=== PATIENT | female | born 1990 | race Caucasian/White ===

== ENCOUNTER 2023-01-16 09:39 | Outpatient (OUT) | payer OTHER, SELFPAY ==
--- NOTE | 2023-01-16 09:01 | US_ITS ---
The [address] [address] Patient Name: FREDERICK RUIZ MRN: [id number] date: 1990 Sex: F Assigned Patient Location: Current Patient Location: US Accession/Order Number: [id number] Exam Date: 01/16/2023 09:02 Report Date: 01/16/2023 09:45 At the request of: JESSIE CONTEH Procedure: US pelvis transvaginal EXAM: US pelvis transvaginal HISTORY: . UNABLE TO SEE IUD STRINGS . COMPARISON: None. TECHNIQUE: Transvaginal scanning was performed FINDINGS: Scanning of the pelvis demonstrates the uterus to measure 11 x 5 x 7.1 cm. Endometrial complex measures 4 mm. Within the endometrial cavity are linear hyperechoic structures with shadowing consistent with an IUD which appears in good position. Left ovary measures 3.5 x 2.7 x 2.3 cm. Color-flow is noted. Resistive indexes 0.6. Follicles are noted. Right ovary measures 4 x 2.2 x 2 cm. Color-flow is noted. Resistive indexes 0.6. Follicles are noted. No masses are noted. No free fluid is noted in the cul-de-sac. US/US pelvis transvaginal IMPRESSION: 1. Normal-appearing uterus and endometrial complex. IUD appears in good position. 2. Normal-appearing ovaries. Electronically authenticated by: BARI SILVESTRE Date: 01/16/2023 09:45
== END 2023-01-16 09:40 | disposition home or self-care (01) ==
LOC: US 09:40
PROVIDERS: Visit Provider Obstetrics & Gynecology
DX: Z97.5 Presence of (intrauterine) contraceptive device (principal)
CPT/HCPCS: 76830

== ENCOUNTER 2024-08-21 06:34 | Outpatient (OUT) | payer OTHER, SELFPAY ==
[2024-08-21 07:58] LABS: Alanine Aminotransferase 25 U/L (14-59); Triglycerides 56 mg/dL (<=150)
== END 2024-08-21 06:35 | disposition home or self-care (01) ==
LOC: LAB 06:34
PROVIDERS: PCP Nurse Practitioner Family
DX: L70.0 Acne vulgaris (principal)
CPT/HCPCS: 36415; 84460; 84478

== ENCOUNTER 2024-11-24 07:04 | Outpatient (OUT) | payer OTHER, SELFPAY ==
--- OUTSIDE RECORDS SUMMARY | 2023-12-31 07:00 | XMS_ITS ---
Author Organization [facility] [place] Address [address] [place] [address] Care Team Providers Care Enterprise Resource Planner Name Role Phone Sonali Langford Primary Care Provider [phone] Allergies No Known Allergies REASON FOR VISIT QUALITY ASSURANCE LEAD- Establish care, poison huan Medications Medication SIG (Take, Route, Frequency, Duration) Notes Start Date End Date Status Clindamycin Phosphate 1 % 1 application External once daily for 30 days Active Winlevi 1 % 1 application Mechanical Field Engineer al Twice a day for 30 days Active Social History Tobacco Use: Social History Observation Description Date Details (start date - stop date) Never Smoker NA - NA Tobacco Control (Standard) Question Answer Notes Tobacco use: Nonsmoker AUDIT-C (Standard) Question Answer Notes Did you have a drink contain ing alcohol in the past year? Yes How often did you have six o r more drinks on one occasion in the past year? Never (0 point) How many drinks did you have on a typical day when you were drinking in the past year? 1 or 2 drinks (0 point) How often did you have a dri nk containing alcohol in the past year? Monthly or less (1 point) Points 1 Interpretation Negative Vital Signs Weight 163.4 lbs 12/31/2023 Height 66 in 12/31/2023 Blood pressure systolic 102 mm Hg 12/31/19 24 Blood pressure diastolic 60 mm Hg 024 BMI 26.37 kg/m2 12/31/2023 Encounters Encounter Location Date Provider Diagnosis [place] [address] [place] [address] 12/31/2023 Sonali Langford Poison huan dermatiti s L23.7 Assessments Encounter Date Diagnosis (ICD Code) Assessment Notes Treatment Notes Treatment Clinical Notes Section Notes 12/31/2023 Poison huan dermatitis (ICD-10 - L23.7) prednisone and cephalexin if not improving , fu Plan Of Treatment Treatment Notes Assessment Notes Poison huan dermatitis prednisone and cephalexin if not improving , fu Next Appt Details Follow Up: prn, Reason: Medications Administered Medication Instructions Date of Administration Dosage Notes Kenalog-40 12/31/2023 80 mg Progress Notes * Angelica RUIZ LDOB:[birth year] (33 yo F)Acc No.[id number]:12/31/2023 New Patient Patient: Angelica DAILY Provider: Elise Langford ([facility]), [place] :1990 A ge:33 Y S ex:Female Date:12/31/2023 Address:[address] [place] [address] [address], [place], [id number] Pcp:SONALI LANGFORD Check In:10:45 AM ESTCheck O ut:11:28 AM EST Subjective: * Chief Complaints: * 1 . QUALITY ASSURANCE LEAD- Establish care. 2. Poison huan. * HPI: D epression Screening: PHQ-2 (2015 Edition) T otal Score 0 L ittle interest or pleasure in doing things??Not at all F eeling down, depressed, or hopeless? 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 * ROS: G eneral/Constitutional: Fever d enies. H eadache d enies. W eight loss?denies. O phthalmologic: Discharge d enies. E ye Pain d enies. I tching and redness d enies. E NT: Nasal discharge d enies. N clay congestion d enies.?Sore throat d enies. C ardiovascular: Chest tightness/ heavy pressure d enies. R apid heart rate d enies. S welling of extremities d enies. C hest pain d enies. ? R espiratory: Productive cough d enies. C hest pain d enies. C ough d enies. S hortness of breath d enies. W heezing d enies. ? G astrointestinal: Abdominal pain d enies. C onstipation d enies. D ecreased appetite d enies. D iarrhea d enies. N ausea d enies. V omiting?denies. G enitourinary: Urinary incontinence d enies. P ainful urination d enies. M usculoskeletal: Back pain d enies. N chapin pain d enies. M uscle aches d enies. S kin: Rash p oison huan , on the extremities, spreading. S kin lesion(s) d enies. * Active Problem List ?Problem List has not been verified* Medical History: A cne. * Surgical History: W isdom Teeth , x2 . * Family History: N o Family History documented.. * Social History: T obacco Use: T obacco Control (Standard) T obacco use: N onsmoker D rug/Alcohol: A ALEYDA-C (Standard) D id you have a drink containing alcohol in the past year? Y es H ow often did you have six or more drinks on one occasion in the past year? N ever (0 point) H ow many drinks did you have on a typical day when you were drinking in the past year? 1 or 2 drinks (0 point) H ow often did you have a drink containing alcohol in the past year? M onthly or less (1 point) P oints 1 I nterpretation N egative * Medications: T aking Clindamycin Phosphate 1 % Lotion 1 application External once daily , Taking Winlevi(Clascoterone) 1 % Cream 1 application External Twice a day , Medication List reviewed and reconciled with the patient * Allergies: N .K.D.A. Objective: * Vitals: W t:163.4lbs, Ht: 66 in, BP:102/60mm Hg, BMI:26.37Index, Ht-cm: 167.64 cm, Wt-k.12 kg. * Examination: G eneral Examinations: GENERAL APPEARANCE: a lert and oriented, i n no acute distress. EYES: c onjunctiva normal, sclera non-icteric. NOSE: n ormal external appearance. LYMPH NODES: n ormal, no cervical, axillary, or inguinal adenopathy. LUNGS: c lear to auscultation bilaterally. CARDIO: r egular rate and rhythm, S1, S2 normal. ABDOMEN: s oft, nontender. MUSCULOSKELETAL G ait and station normal. SKIN: s treaks of red raised areas scattered arms and legs, left thigh with surrounding warmth and redness. Assessment: * Assessment: 1. P oison huan dermatitis - L23.7 (Primary) Plan: * Treatment: * Therapeutic Injections: Kenalog, 40 mg/mL : 80 mg (Route: Intramuscular) given by Maria Fernanda Mayorga , MR on left deltoid (Poison huan dermatitis) * Procedure Codes: 9 6372 THERAP.INJ. OF MED. INTRAMUSCULAR OR SUBCUTANEOUS, J3301 Kenalog, 40 mg/mL, Units: 8.00 * Preventive Medicine: Screenings/Counseling: B GA ACTION PLAN Above Normal BMI Follow-up D ietary management education, guidance, and counseling See treatment section of progress note for complete details of management plan. 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, reading for fun Depression Screening PHQ-2 (2015 Edition) Total Score: 0 Little interest or pleasure in doing thi ngs?: Not at all Feeling down, depressed, or hopeless?: N ot at all Examination Category Sub-Category Detail Notes Category Not es General Examinations GENERAL APPEARANCE: alert a nd oriented, in no acute distress EYES: conjunctiva normal, sclera non-icteric EARS: NOSE: normal external appe arance THROAT: CARDIO: regular rate and rhy thm, S1, S2 normal LUNGS: clear to auscultatio n bilaterally ABDOMEN: soft, nontender SKIN: streaks of red raise d areas scattered arms and legs, left thigh with surrounding warmth and redness BACK: MUSCULOSKELETAL: Gait and station nor mal LYMPH NODES: normal, no cervical, axillary, or inguinal adenopathy
--- OUTSIDE RECORDS SUMMARY | 2024-11-03 15:56 | XMS_ITS ---
Author Name Auto Generated Organization [facility] Care Team Providers Care Industrial Accountant Name Role Phone RENE CHAVEZ Attending Unavailable PETITTI, RENE A Attending Unavailable PETITTI, RENE A Attending Unavailable PETITTI, RENE A Attending Unavailable PETITTI, RENE A Attending Unavailable PETITTI, RENE A Attending Unavailable PETITTI, RENE A Attending Unavailable PETITTI, RENE A Attending Unavailable PROBLEMS No Problem Records Found PROCEDURES No Procedure Records Found RESULTS No Result Records Found ALLERGIES No Allergies Records Found ENCOUNTERS ADMIT/DISCHARGE ACCOUNT NUMBER ADMITTING ENCOUNTER CLASS LOCATION SOURCE 11/03/2024/ 5 [id number] [facility] 10/26/2024/ 5 [id number] Ambulatory Building:[facility] EPIC 09/22/2024/ 5 [id number] Ambulatory Building:[facility] EPIC 08/20/2024/ 5 [id number] Ambulatory Building:[facility] EPIC 07/20/2024/ 5 [id number] Ambulatory Building:[facility] EPIC 06/16/2024/ 4 [id number] Ambulatory Building:[facility] EPIC 02/25/2024/ 4 [id number] Ambulatory Building:[facility] EPIC 12/25/2023/ 4 [id number] Ambulatory Building:[facility] EPIC PAYERS ENCOUNTER GUARANTOR PAYER SUBSCRIBER SOURCE 11/03/2024 FREDERICK CINTHIA: [id number] [address], [place] [address]Exn: (HP) Primary Insurance:MEDICAL MUTUALPolicy Number: [id number] e Date:2022-11-09 FREDERICK BRIANB: [id number] [address], [place] [address] [facility] 10/26/2024 FREDERICK BRIANB: [id number] [address] [facility] [address] [address] [address]Yck: (HP) Primary Insurance:MEDICAL MUTUALPolicy Number: [id number] e Date:2022-11-09 FREDERICK BRIANB: [id number] [address] [facility] EPIC 09/22/2024 FREDERICK BRIANB: [id number] [address] [facility] [address] [address] [address]Nuu: (HP) Primary Insurance:MEDICAL MUTUALPolicy Number: [id number] e Date:2022-11-09 FREDERICK TORRESB: [id number] [address] [facility] EPIC 08/20/2024 FREDERICK TORRESB: [id number] [address], [place] [address]Qge: (HP) Primary Insurance:MEDICAL MUTUALPolicy Number: [id number] e Date:2022-11-09 FREDERICK TORRESB: [id number] [address], [place] [address] [facility] EPIC 07/20/2024 FREDERICK RUIZDOB: [id number] [address], [place] [address]Xhn: (HP) Primary Insurance:MEDICAL MUTUALPolicy Number: [id number] e Date:2022-11-09 FREDERICK TORRSEB: [id number], [place] [address] [facility] EPIC 06/16/2024 FREDERICK TORRESB: [id number] [address], [place] [address]Smw: (HP) Primary Insurance:MEDICAL MUTUALPolicy Number: [id number] e Date:2022-11-09 FREDERICK TORRESB: [id number], [place] [address] [facility] EPIC 02/25/2024 FREDERICK TORRESB: [id number] [address], [place] [address]Owg: (HP) Primary Insurance:MEDICAL MUTUALPolicy Number: [id number] e Date:2022-11-09 FREDERICK TORRESB: [id number], [place] [address] [facility] EPIC 12/25/2023 FREDERICK CINTHIA: [id number] [address] [address]Hqq: () Primary Insurance:MEDICAL NEWARKPoly Number: [id number] e Date:2022-11-09 FREDERICK CINTHIA: [id number] [facility] [address], [place] [address] [facility] EPIC
--- OUTSIDE RECORDS SUMMARY | 2024-11-24 07:05 | XMS_ITS | Encounter Summary ---
Author Organization [facility] Address [address] [place] [address] Care Team Providers Care Medical Record Clerk Name Role Phone Juan Miguel Díaz MD Primary Care Provider + [phone] Encounter Details Date Type Department Care Team (Late st Contact Info) Description 09/23/2024 Orders Only [facility] [address] [place] [address] Marissa Lema MD [address] [facility] [address] [facility] [address] [place] [address] Social History Tobacco Use Types Packs/Day Years Used Date Smoking Tobacco: Never Smokeless Tobacco: Never Comments No Sex and Gender Information Value Date Recorded Sex Assigned at Female 12/16/2022 9:36 AM EDT Legal Sex Female 11:47 PM EDT Gender Identity Female 12/16/2022 9:36 AM EDT Sexual Orientation Straight 12/16/2022 9: 36 AM EDT documented as of this encounter Plan of Treatment Upcoming Encounters Date Type Department Care Team (Late st Contact Info) Description 12/03/2024 9:10 AM EDT Office Visit [facility] [address] [place] [address] Marissa Lema MD [address] [facility] [address] [place] [address] documented as of this encounter Visit Diagnoses Not on filedocumented in this encounter Care Teams Medical Record Clerk Relationship Specialty Start Date End Date Juan Miguel Díaz MD [address] [place], [place] [id number] PCP - General Family Medicine 12/17/22 documented as of this encounter
--- OUTSIDE RECORDS SUMMARY | 2024-11-24 07:05 | XMS_ITS | Encounter Summary ---
Author Organization [facility] Address [address] [facility] [place] [address] Care Team Providers Care Cementer Name Role Phone Juan Miguel Díaz MD Primary Care Provider [phone] Reason for Visit * Reason Onset Date Comments Labs Only 09/22/2024 Encounter Details Date Type Department Care Team (Late st Contact Info) Description 09/22/2024 Telephone [facility] [address] [facility] [address] [place] [address] Kaitlin Sam MA Labs Only Social History Tobacco Use Types Packs/Day Years Used Date Smoking Tobacco: Never Smokeless Tobacco: Never Comments No Sex and Gender Information Value Date Recorded Sex Assigned at Female 12/16/2022 9:36 AM EDT Legal Sex Female 11:47 PM EDT Gender Identity Female 12/16/2022 9:36 AM EDT Sexual Orientation Straight 12/16/2022 9: 36 AM EDT documented as of this encounter Miscellaneous Notes * Telephone Encounter - Natasha Robles LPN - 09/22/2024 4:50 PM EDT Results from 08/20/2024 will be faxed at this time per Elham in the lab * Telephone Encounter - Kaitlin Sam MA - 09/22/2024 4:26 PM EDT Patient had her labs done last month for Accutane start at [facility]. Can you please request a copy of her results. Thank you. documented in this encounter Plan of Treatment Upcoming Encounters Date Type Department Care Team (Late st Contact Info) Description 12/03/2024 9:10 AM EDT Office Visit [facility] [address] [place] [address] Marissa Lema MD [address] [facility] [address] [place] [address] documented as of this encounter Visit Diagnoses Not on filedocumented in this encounter Care Teams Cementer Relationship Specialty Start Date End Date Juan Miguel Díaz MD [address] [place] [address] PCP - General Family Medicine 12/17/22 documented as of this encounter
--- OUTSIDE RECORDS SUMMARY | 2024-11-24 07:05 | XMS_ITS | Encounter Summary ---
Author Organization [facility] Address [address] [facility] [place] [address] Care Team Providers Care Grocery Shopper Name Role Phone Juan Miguel Díaz MD Primary Care Provider + [phone] Encounter Details Date Type Department Care Team (Late st Contact Info) Description 12/24/2022 Abstract [facility] [address] [place] [address] Marissa Lema MD [address] [facility] [address] [place] [address] Social History Tobacco Use Types Packs/Day Years Used Date Smoking Tobacco: Never Tobacco Cessation:Counseling Given: Not Answered Comments No Sex and Gender Information Value [...] DERM [address] [place] [address] Marissa Lema MD [address] [place] [address] documented as of this encounter Visit Diagnoses Not on filedocumented in this encounter Care Teams Grocery Shopper Relationship Specialty Start Date End Date Juan Miguel Díaz MD [address] [place], [place] [phone] PCP - General Family Medicine 12/17/22 documented as of this encounter
--- OUTSIDE RECORDS SUMMARY | 2024-11-24 07:05 | XMS_ITS | Patient Health Record ---
Author Organization [facility] [place] Address [address] [place] [address] Care Team Providers Care Cytogeneticist Name Role Phone Sonali Langford Primary Care Provider SONALI LANGFORD Unavailable [phone] Allergies No Known Allergies Results Component Value Reference Range Notes TRIGLYCERIDE Reviewed date:08/21/2024 10:56:19 AM Interpretation: Performing Lab: Notes/Report: [facility] , Triglycerides 56 <=150 mg/dL Performing Lab: see note ML - [facility] LB SGPT Reviewed date:08/21/2024 10:56:33 AM Interpretation: Performing Lab: Notes/Report: [facility] , Alanine Aminotransferase 25 14-59 U/L Performing Lab: see note ML - [facility] Reason For Referral No Information Medications Medication SIG (Take, Route, Frequency, Duration) Notes Start Date End Date Status predniSONE 20 MG 2 tablet Orally Once a day for 3 days 12/31/2023 Active Cephalexin 500 MG 2 capsule Orally BID for 10 12/31/2023 Active Clindamycin Phosphate 1 % 1 application External once daily for 30 days Active Winlevi 1 % 1 application Flat Folder al Twice a day for 30 days [...] point) Points 1 Interpretation Negative Vital Signs Blood pressure diastolic 60 mm Hg 12/31/2023 Height 66 in 12/31/2023 Blood pressure systolic 102 mm Hg 12/31/2023 Weight 163.4 lbs 12/31/2023 BMI 26.37 kg/m2 12/31/2023 Encounters Encounter Location Date Provider [facility] [address] [place] [address] 12/31/2023 Sonali Anastasiya Poison huan dermatiti s L23.7 [facility] [address] [place] [address] 12/31/2023 SONALILILA VELÁSQUEZMER Poison huan dermatiti s L23.7 Assessments Encounter Date Diagnosis (ICD Code) Assessment Notes Treatment Notes Treatment Clinical Notes Section Notes 12/31/2023 Poison huan dermatitis (ICD-10 - L23.7) prednisone and cephalexin if not improving , fu 12/31/2023 Poison huan dermatitis (ICD-10 - L23.7) Plan Of Treatment No Information Insurance Providers Payer Name Payer Address Payer Phone Subscriber Number Group Number Insured Name Patient Relationship to Insured Coverage Start Date Coverage End Date O [address] [place], [place] [id number] Angelica Josue Self - patient is the insured 3 Medications Administered Medication Instructions Date of Administration Dosage Notes Kenalog-40 12/31/2023 80 mg Medical (General) History Medical History History ICD Code Acne L70.9 Surgical History Surgery Date(Month/Year) [place] Teeth x2
--- OUTSIDE RECORDS SUMMARY | 2024-11-24 07:06 | XMS_ITS | Clinical Summary ---
Author Organization [facility] Address [address] [facility] [email or web address] [address] Care Team Providers Care Stage Electrician Name Role Phone Juan Miguel Díaz MD Primary Care Provider Allergies No known active allergies Medications Levonorgestrel (Mirena, 52 MG,) 20 MCG/DAY intrauterine device by Intrauterine route. Active ISOtretinoin (Accutane) 40 MG capsuleIndicati ons:Acne vulgaris Take 1 capsule daily, by mouth, 30 days 30 capsule 025 Active ISOtretinoin (Accutane) 40 MG capsuleIndicati ons:Acne vulgaris Take 1 capsule daily, by mouth, 30 days 30 capsule 025 2024 Discontinued(R eorder) ISOtretinoin (Accutane) 40 MG capsuleIndicati ons:Acne vulgaris Take 1 capsule daily, by mouth, 30 days 30 capsule 025 2024 Discontinued(R eorder) ISOtretinoin (Accutane) 40 MG capsuleIndicati ons:Acne vulgaris Take 1 capsule daily, by mouth, 30 days 30 capsule 025 2024 Discontinued Hospital, Clinic, or Other Facility Administered Medication Ordered Dose Route Frequency Start Date End Date Status Levonorgestrel intrauterine device 52 mgIndications:Encounter for insertion of Mirena IUD 52 mg IU Continuous 12/17/2022 A ctive Active Problems No known active problems Encounters Date Type Department Care Team Description 11/03/2024 3:55 PM EDT [facility] [address] [place] [phone] Marissa Lema MD Acne vulgaris (Primary Dx); High risk medication use 11/03/2024 Bamboo flowsheet [facility] [address] [place] [phone] Marissa Lema MD 11/03/2024 Travel 11/02/2024 Telephone [facility] [address] [place] [address] Birdie Ernandez MA 10/27/2024 Telephone [facility] [address] [place] [address] Reanna Chandler LPN 10/27/2024 Orders Only [facility] [address] [place] [address] Kalyn Carmona LPN Acne vulgaris 10/26/2024 4:05 PM EDT Office Visit [facility] [address] [place] [address] Marissa Lema MD Acne vulgaris (Primary Dx); High risk medication use 10/26/2024 Bamboo flowsheet [facility] [address] [place] [phone] Marissa Lema MD 10/26/2024 Travel 09/23/2024 Orders Only [facility] [address] [place] [phone] Marissa Lema MD 09/22/2024 3:50 PM EDT Office Visit [facility] [address] [place] [address] Marissa Lema MD Acne vulgaris (Primary Dx); High risk medication use 09/22/2024 Telephone [facility] [address] [place] [address] Kaitlin Sam MA Labs Only 09/22/2024 Bamboo flowsheet [facility] [address] [place] [address] Marissa Lema MD 09/22/2024 Travel from Last 3 Months Family History Medical History Relation Name Comments Hypertension Father Heart disease Maternal Grandfather Cancer Paternal Grandfather Melanoma Neg Hx Relation Name Status Comments Father Maternal Grandfather Paternal Grandfather Social History Tobacco Use Types Packs/Day Years Used Date Smoking Tobacco: Never Smokeless Tobacco: Never Tobacco Cessation:Counseling Given: Not Answered Comments No Sex and Gender Information Value Date Recorded Sex Assigned at Female 12/16/2022 9:36 AM EDT Legal Sex Female 11:47 PM EDT Gender Identity Female 12/16/2022 9:36 AM EDT Sexual Orientation Straight 12/16/2022 9: 36 AM EDT Last Filed Vital Signs Vital Sign Reading Time Taken Comments Blood Pressure 106/70 01/15/2023 5:28 PM EDT Pulse - - Temperature - - Respiratory Rate 16 01/15/2023 5:28 PM EDT Oxygen Saturation - - Inhaled Oxygen Concentration - - Weight 72.2 kg (159 lb 1.9 oz) 01/15/2023 5:28 P M EDT Height 165.1 cm (5' 5 ) 01/15/2023 5:28 PM EDT Body Mass Index 26.48 01/15/2023 5:28 PM EDT Plan of Treatment Upcoming Encounters Date Type Department Care Team (Late st Contact Info) Description 12/03/2024 9:10 AM EDT Office Visit [facility] [address] [place] [phone] Marissa Lema MD [address] [place] [address] Health Maintenance Due Date Last Done Comments Cervical Cancer Screening 11/08/2027 HPV/Cotest 11/08/2027 Pap Smear 11/08/2027 11/07/2022 Influenza Vaccine Completed 04/03/2024, , 04/13/2022, Additional history exists Procedures Procedure Name Priority Date/Time Associated Diagnosis Comments POCT , URINE Routine 11/03/2024 4:26 PM EDT Acne vulgaris High risk medication use POCT , URINE Routine 10/26/2024 4:14 PM EDT High risk medication use Acne vulgaris TRIGLYCERIDES Routine 09/23/2024 11:17 AM EDT Acne vulgaris ALT Routine 09/23/2024 11:17 AM EDT Acne vulgaris POCT , URINE Routine 09/22/2024 4:13 PM EDT Acne vulgaris PAP SMEAR Routine 11/07/2022 12:00 AM EDT from Last 3 Months or Most Recently Relevant to Health Maintenance Results * POCT , urine manually resulted (11/03/2024 4:26 PM EDT) Only the most recent of3 resultswithin the time period is included. Preg Test, Ur Negative Negative Urine 11/03/2024 4:26 PM EDT Marissa Lema MD POINT OF CARE TEST ENTER/EDIT ORDERABLES Final Result * Triglycerides (09/23/2024 11:17 AM EDT) Blood Venous blood specimen / Unknown Marissa Lema MD LAB BLOOD ORDERABLES Final Re sult [facility] * ALT (09/23/2024 11:17 AM EDT) Blood Venous blood specimen / Unknown Marissa Lema MD LAB BLOOD ORDERABLES Final Re sult [facility] * Pap Smear (11/07/2022 12:00 AM EDT) Swab Cervical swab / Unknown Historical Provider LAB CYTOLOGY ORDERABLES F inal Result [facility] from Last 3 Months or Most Recently Relevant to Health Maintenance Insurance [employer] Care Teams Stage Electrician Relationship Specialty Start Date End Date Juan Miguel Díaz MD [address] [place] [address] PCP - General Family Medicine 12/17/22
[2024-11-24 08:12] LABS: Alanine Aminotransferase 21 U/L (14-59); Triglycerides 30 mg/dL (<=150)
== END 2024-11-24 07:05 | disposition home or self-care (01) ==
PROVIDERS: PCP Nurse Practitioner Family; Visit Provider Dermatology
DX: Z79.899 Other long term (current) drug therapy (principal); L70.0 Acne vulgaris
CPT/HCPCS: 36415; 84460; 84478